=== PATIENT | male | born 1965 | race African-American/Black ===

== ENCOUNTER 2018-03-08 09:54 | Inpatient (IN) | payer OTHER ==
[~2018-03-08] VITALS: Ht 182.9 cm; Wt 73.6 kg
[2018-03-08] MEDS ORDERED: LISI-661 PO (10:13)
[2018-03-08] MEDS ORDERED: METO25XL PO (10:13)
[2018-03-08] MEDS ORDERED: GLIP5 PO (10:13)
[2018-03-08] MEDS ORDERED: METF500T6 PO (10:13)
[2018-03-08 10:21] LABS: BASOPHILS % (AUTO) 1.2 % (0.0-2.0); EOSINOPHILS % (AUTO) 2.8 % (1.0-6.0); HEMATOCRIT 40.4 % (41-53); HEMOGLOBIN 14.1 g/dL (13.5-17.5); LYMPHOCYTES # (AUTO) 2.2 K/uL (1.0-4.8); MEAN CORPUSCULAR HEMOGLOBIN 32.1 pg (26.0-34.0); MEAN CORPUSCULAR HGB CONC 34.9 G/dL (31.0-37.0); MEAN CORPUSCULAR VOLUME 92 fL (80-100); MONOCYTES # (AUTO) 0.4 K/uL (0.1-1.0); MONOCYTES % (AUTO) 8.3 % (2.0-9.0); NEUTROPHILS # (AUTO) 1.7 K/uL (1.8-7.7); NEUTROPHILS % (AUTO) 38.7 % (40.0-70.0); PLATELET COUNT (AUTO) 180 K/uL (150-450); RED CELL DISTRIBUTION WIDTH 14.6 % (11.5-14.5)
[2018-03-08 10:34] LABS: ANION GAP 8 mmol/L (8-16); CALCIUM, TOTAL 9.3 mg/dL (8.8-10.5); CARBON DIOXIDE 27 mmol/L (22-29); CHLORIDE 104 mmol/L (98-107); CREATININE 1.03 mg/dL (0.60-1.30); GLOMERULAR FILTR. RATE CALC > 60 mL/min (>60); GLUCOSE,RANDOM 174 mg/dL (70-110); POTASSIUM 3.6 mmol/L (3.5-5.1); SODIUM SERUM 139 mmol/L (136-145); UREA NITROGEN, BLOOD 4 mg/dL (7-18)
[2018-03-08 10:40] LABS: ALANINE AMINOTRANSFERASE 58 U/L (12-78); ALBUMIN 4.1 g/dL (3.4-5.0); ALKALINE PHOSPHATASE 103 U/L (46-116); ASPARTATE AMINOTRANSFERASE 71 U/L (15-37); BILIRUBIN,TOTAL 0.5 mg/dL (0.1-1.0); TOTAL PROTEIN, SERUM 9.1 g/dL (6.4-8.2)
[2018-03-08 10:43] LABS: AMPHET/METH SCREEN,URINE NEGATIVE (NEGATIVE); BARBITURATE SCREEN, URINE NEGATIVE (NEGATIVE); BENZODIAZEPINES SCREEN,URINE NEGATIVE (NEGATIVE); CANNABINOID SCREEN,URINE NEGATIVE (NEGATIVE); COCAINE SCREEN,URINE NEGATIVE (NEGATIVE); METHADONE SCREEN, URINE NEGATIVE (NEGATIVE); OPIATE SCREEN,URINE NEGATIVE (NEGATIVE); PHENCYCLIDINE SCREEN,URINE NEGATIVE (NEGATIVE)
[2018-03-08] MEDS ORDERED: HALOPERIDOL 5 MG TABLET PO PRN (12:30)
[2018-03-08] MEDS ORDERED: LORazepam 2 MG TABLET PO PRN (12:30)
[2018-03-08] MEDS ORDERED: ZOLPIDEM TARTRATE 10 MG TABLET PO PRN (12:30)
[2018-03-08 12:38] LABS: GLUCOSE,POINT OF CARE 176 MG/DL (70-110)
[2018-03-08 12:51] LABS: HEMOGLOBIN A1C 8.2 % (4.5-6.2)
[2018-03-08 14:19] LABS: GLUCOSE,POINT OF CARE 237 MG/DL (70-110)
[2018-03-08 17:53] LABS: GLUCOSE,POINT OF CARE 273 MG/DL (70-110)
[2018-03-08] MEDS ORDERED: INSULIN REGULAR, HUMAN 100 UNITS/ML SQ ONE (18:00)
[2018-03-08] MEDS ORDERED: LORazepam 1 MG TABLET PO ONE (18:00)
[2018-03-08 19:24] LABS: GLUCOSE,POINT OF CARE 257 MG/DL (70-110)
[2018-03-08 21:15] VITALS: BP 154/97
[2018-03-08 21:43] LABS: GLUCOMETER DEV NAME(LOC) BV2S 2; GLUCOSE,POINT OF CARE 242 MG/DL (70-110)
[2018-03-08] MEDS ORDERED: PNEUMOCOCCAL VACCINE POLYVALENT 0.5 ML VIAL [PPSV23] IM ONE (22:00)
[2018-03-08 22:15] VITALS: BP 161/97
[2018-03-08] MEDS ORDERED: GLUCAGON,HUMAN RECOMBINANT 1 MG VIAL IM PRN (22:15)
[2018-03-08] MEDS ORDERED: CYANOCOBALAMIN 1,000 MCG/ML VIAL IM ONE (22:15)
[2018-03-08] MEDS: CloNIDine HCL 0.1 MG TABLET PO PRN (22:39)
[2018-03-08] MEDS: INSULIN LISPRO 100 UNITS/ML SQ PRN (22:41)
[2018-03-08 23:15] VITALS: BP 142/89
[2018-03-09] VITALS (12 sets, daily range): BP systolic 121–165; BP diastolic 70–88
[2018-03-09] MEDS: CloNIDine HCL 0.1 MG TABLET PO PRN (06:24)
[2018-03-09] MEDS ORDERED: GlipiZIDE 5 MG TABLET PO SCH (06:30)
[2018-03-09] MEDS: INSULIN LISPRO 100 UNITS/ML SQ PRN ×4 (06:57→21:02)
[2018-03-09] MEDS: MetFORMIN HCL 500 MG TABLET PO SCH ×2 (06:57→16:24)
[2018-03-09 07:18] LABS: GLUCOMETER DEV NAME(LOC) BV2S 2; GLUCOSE,POINT OF CARE 175 MG/DL (70-110)
[2018-03-09] MEDS ORDERED: LISINOPRIL 10 MG TABLET PO SCH (09:00)
[2018-03-09] MEDS: METOPROLOL SUCCINATE 25 MG ER TABLET PO SCH (09:29)
[2018-03-09] MEDS: THIAMINE HCL 100 MG TABLET PO SCH (09:29)
[2018-03-09] MEDS: FOLIC ACID 1 MG TABLET PO SCH (09:29)
[2018-03-09] MEDS: LISINOPRIL 20 MG TABLET PO SCH (09:35)
[2018-03-09 09:49] LABS: FREE T4 (FREE THYROXINE) 0.85 ng/dL (0.76-1.46); THYROID STIMULATING HORMONE 1.4 uIU/mL (0.36-3.74)
[2018-03-09 10:12] LABS: VITAMIN D,TOTAL (25-0H) 23 ng/mL (30-100)
[2018-03-09 10:34] LABS: FOLATE SERUM 9.8 ng/mL (5.4-); VITAMIN B12 LEVEL > 2000 pg/mL (211-911)
[2018-03-09 12:48] LABS: GLUCOMETER DEV NAME(LOC) BV2S 2; GLUCOSE,POINT OF CARE 186 MG/DL (70-110)
[2018-03-09] MEDS: GlipiZIDE 5 MG TABLET PO SCH (16:24)
[2018-03-09 17:48] LABS: GLUCOMETER DEV NAME(LOC) BV2S 2; GLUCOSE,POINT OF CARE 281 MG/DL (70-110)
[2018-03-09 23:39] LABS: GLUCOMETER DEV NAME(LOC) BV2S 2; GLUCOSE,POINT OF CARE 181 MG/DL (70-110)
[2018-03-10 00:18] VITALS: BP 138/82
[2018-03-10 02:00] VITALS: BP 138/82
[2018-03-10 06:28] LABS: GLUCOMETER DEV NAME(LOC) BV2S 2; GLUCOSE,POINT OF CARE 177 MG/DL (70-110)
[2018-03-10] MEDS: GlipiZIDE 5 MG TABLET PO SCH (06:59)
[2018-03-10] MEDS: MetFORMIN HCL 500 MG TABLET PO SCH (06:59)
[2018-03-10] MEDS: INSULIN LISPRO 100 UNITS/ML SQ PRN (07:03)
[2018-03-10 08:13] VITALS: BP 166/94
[2018-03-10] MEDS: CloNIDine HCL 0.1 MG TABLET PO PRN (08:13)
[2018-03-10] MEDS ORDERED: CITA-106 PO (08:28)
[2018-03-10] MEDS ORDERED: CITALOPRAM HYDROBROMIDE 20 MG TABLET PO SCH (09:00)
[2018-03-10 09:30] VITALS: BP 130/81
[2018-03-10] MEDS: METOPROLOL SUCCINATE 25 MG ER TABLET PO SCH (09:45)
[2018-03-10] MEDS: FOLIC ACID 1 MG TABLET PO SCH (09:45)
[2018-03-10] MEDS: THIAMINE HCL 100 MG TABLET PO SCH (09:46)
[2018-03-10] MEDS: LISINOPRIL 20 MG TABLET PO SCH (09:46)
[2018-03-10 11:13] LABS: GLUCOMETER DEV NAME(LOC) BV2S 2; GLUCOSE,POINT OF CARE 247 MG/DL (70-110)
== END 2018-03-10 13:08 | disposition home or self-care (01) | DRG 881 ==
LOC: EMS 09:58 → B2S 21:18
PROVIDERS: ADMIT Psychiatry & Neurology Psychiatry; ATTEND Psychiatry & Neurology Psychiatry
DX: F32.9 Major depressive disorder, single episode, unspecified (principal); R45.851 Suicidal ideations; F10.239 Alcohol dependence with withdrawal, unspecified; D72.819 Decreased white blood cell count, unspecified; K70.10 Alcoholic hepatitis without ascites; E11.65 Type 2 diabetes mellitus with hyperglycemia; E78.00 Pure hypercholesterolemia, unspecified; E78.5 Hyperlipidemia, unspecified; I10 Essential (primary) hypertension; Y90.1 Blood alcohol level of 20-39 mg/100 ml; F17.220 Nicotine dependence, chewing tobacco, uncomplicated; R79.89 Other specified abnormal findings of blood chemistry; Z28.21 Immunization not carried out because of patient refusal; Z79.899 Other long term (current) drug therapy; Z79.84 Long term (current) use of oral hypoglycemic drugs
CPT/HCPCS: 80074; 82306; 82607; 82746; 83036; 84439; 84443; 96372; 99285; G0480; J1815; J3420